=== PATIENT | male | born 1990 | race Two or more races ===

== ENCOUNTER 2024-07-23 17:39 | Emergency (ER) | payer MEDICAID, SELFPAY ==
[2024-07-23 17:56] VITALS: BP 149/85; PULSE 89; RESP 18; TEMP 36.9; O2SAT 99; BMI 27.7
--- NOTE | 2024-07-23 17:59 | XR_ITS ---
Examination: Abdomen sonogram, Limited Date and time of exam: July 23, 2024 1821 hrs. Indications: Epigastric pain and dizziness beginning today with right upper abdominal pain Technique: Real-time de guzman scale transabdominal sonographic images of the upper abdomen obtained. Findings: Suspicious for gallbladder sludge No gallstones Normal gallbladder wall Normal common bile duct 0.3 cm Pancreatic head 2.7 cm Liver 15.4 cm fatty infiltration no focal liver lesions Normal hepatopedal portal venous flow Impression: Negative for cholelithiasis, negative for cholecystitis Fatty liver
--- NOTE | 2024-07-23 18:01 | EDNOTE_ITS ---
<Statement entered by Darlene Ballesteros MD - 07/24/24 22:06> As co-signing physician, I was present and available for consult prn. I concur with the plan and care as documented by the midlevel provider. ED Abdominal Pain RME/HPI General Chief Complaint: Abdominal Pain Stated complaint: ABDOMINAL PAIN WITH DIARRHEA Time seen by provider: 07/23/24 17:53 Arrival date/time: 07/23/24 17:39 RME / HPI RME / HPI narrative: 33-year-old male patient with significant history of gout, hypertension, depression, anxiety, was brought in by family for evaluation regarding epigastric pain. Patient's been having epigastric pain earlier today when dizziness, nausea, severity moderate. Patient told me that from time to time he is not taking his medication due to side effects. Patient admits of suicidal ideations been ongoing for several days now. No concrete plan.. Denies any homicidal ideation.. No medications taken prior to arrival. Related Data Previous Rx's ?Medication ?Instructions ?Recorded buspirone 15 mg tablet 15 mg PO BID anxiety #60 tabs 05/14/24 indomethacin 25 mg capsule 25 mg PO TID gout #90 caps 05/14/24 losartan 50 mg tablet 50 mg PO QDAY #30 tabs 05/14/24 sertraline 50 mg tablet 50 mg PO QDAY #30 tabs 05/14/24 Allergies Allergy/AdvReac Type Severity Reaction Status Date / Time No Known Allergies Allergy Verified 07/23/24 17:40 Review of Systems Review of Systems Narrative Review of Systems: Review of system reviewed and within normal limits except mentioned in HPI ED Exam Narrative Physical exam: VITAL SIGNS: Reviewed. GENERAL APPEARANCE: Alert and interactive, follows commands, no acute distress, HEAD AND FACE: Non-traumatic. ENT: PERRL, pink conjunctivitis, eyelid no trauma, Mucous membrane moist. NECK: Supple, nontender, no nuchal rigidity. CHEST: No tenderness, no crepitus, no paradoxical movement, no retractions. LUNGS: Clear, well ventilated, symmetric, no rales, no wheezing, no ronchi, no stridor, good breath sounds bilaterally. HEART: Regular rate, regular rhythm, no murmur, no gallops. ABDOMEN: Soft, positive bowel sounds, nondistended, no guarding, epigastric tenderness, no rebound, no masses, RECTAL: Deferred. GENITAL: Deferred. NEUROLOGICAL: Gross motor function intact sensory function intact, Appropriate for age. MUSCULOSKELETAL: low back nontender, full range of motion. EXTREMITIES: Nontender, full range of motion. SKIN: Color pink, dry, no rash, no lacerations, no abrasions, no contusions. LYMPHATICS: Deferred. Course Quality Measures none Orders Category Date Time Status 1799 Psychiatric Hold NOW Care 07/23/24 18:30 Ordered US gall bladder Stat Exams 07/23/24 17:59 Completed CBC Stat Lab 07/23/24 18:18 Completed Comprehensive Metabolic Panel Stat Lab 07/23/24 18:18 Completed Drug Screen,Urine Stat Lab 07/23/24 18:27 Ordered Lipase Stat Lab 07/23/24 18:18 Completed Prothrombin Time with INR Stat Lab 07/23/24 18:18 Completed UA [Urinalysis] Stat Lab 07/23/24 17:59 Ordered DiphenhydrAMINE [Benadryl] Med 07/23/24 17:59 Discontinued 50 mg PO X1 ONE mg Hyd/Al Hyd/Alek Susp [Maalox Susp] Med 07/23/24 17:59 Discontinued 30 ml PO X1 ONE Vital Signs Vital signs: Vital Signs Temperature 98.5 F 07/23/24 17:56 Pulse Rate 89 07/23/24 17:56 Respiratory Rate 18 07/23/24 17:56 Blood Pressure 149/85 H 07/23/24 17:56 Pulse Oximetry (%) 99 07/23/24 17:56 Oxygen Delivery Method Room Air 07/23/24 17:56 Abdominal Pain MDM MDM Narrative MDM Narrative:: 33-year-old male patient with significant history of gout, hypertension, depression, anxiety, was brought in by family for evaluation regarding epigastric pain. Patient's been having epigastric pain earlier today when dizziness, nausea, severity moderate. Patient told me that from time to time he is not taking his medication due to side effects. Patient admits of suicidal ideations been ongoing for several days now. No concrete plan.. Denies any homicidal ideation.. No medications taken prior to arrival. Ultrasound of the abdomen came back unremarkable. Laboratory workup also came back normal. Patient is medically cleared for crisis intervention Care transferred to Dr Ballesteros at 11 pm for final disposition. Patient data External records reviewed:: None Clinical information provided by:: patient Social determinants that could affect healthcare access:: none Patient has the following chronic illnesses:: Depression, anxiety, schizophrenia How is presenting disease/condition affected by chronic disease/condition?: exacerbated by Evaluation data The following diagnostics were reviewed and interpreted by me:: lab results and radiology exam(s) Lab and/or radiology exams considered but not ordered:: None Interpretation Summary: Patient's workup all came back unremarkable. Ultrasound of the gallbladder came back with no acute pathology. Medications / Prescriptions Medications or Prescriptions considered but not ordered:: None Medication administrations:: Medication Administration History Discontinued Medications Al Hydrox/Mg Hydrox/Simethicone (Mg Hyd/Al Hyd/Alek (Maalox Reg) Susp 30 Ml Udc) 30 ml PO X1 ONE Stop: 07/23/24 18:00 Last Admin: 07/23/24 19:19 Dose: 30 ml Documented By: ALESIA Diphenhydramine HCl (Diphenhydramine 25 Mg Capsule) 50 mg PO X1 ONE Stop: 07/23/24 18:00 Last Admin: 07/23/24 20:45 Dose: Not Given Documented By: ALESIA Non-Admin Reason: Patient Asleep Maalox, and Benadryl Consultations Consultation(s) initiated? (list below): No Diagnosis Differential diagnosis abdominal pain: abdominal pain, gastroenteritis, pancreatitis and other (Biliary colic, cholelithiasis) Most likely diagnosis given after review of the tests above:: Suicidal ideation, abdominal pain Admission Indicated Admission indicated?: not indicated Explain why admission is indicated or not indicated:: None Admission Request Was there a request for admission?: No Disposition Plan Disposition Plan: other (specify) (Pending crisis intervention) Discharge Plan Prescriptions/Referrals Prescriptions/Med Rec: No Action buspirone 15 mg tablet 15 mg PO BID MDD 30 mg Qty: 60 5RF indomethacin 25 mg capsule 25 mg PO TID MDD 75 mg Qty: 90 5RF Rx Instructions: administer with food or milk sertraline 50 mg tablet 50 mg PO QDAY Qty: 30 2RF losartan 50 mg tablet 50 mg PO QDAY Qty: 30 2RF Referrals: No Primary/Family,Physician [Primary Care Provider] - In 1 week Problem List Clinical Impression: Suicidal ideation Patient/Caregiver Discharge Instructions Print Language: Sinhala
[2024-07-23 18:26] LABS: Basophils % (Auto) 1 % (0-2.5); Eosinophils # (Auto) 0.2 Thou/mm3 (0.0-0.5); Eosinophils % (Auto) 3 % (0-10); Hematocrit 44.8 % (41.0-53.0); Hemoglobin 15.7 g/dL (13.5-16.0); Immature Granulocytes % (Auto) 0 % (0-0); Immature Granulocytes Auto 0.01 Thou/mm3 (0.00-0.00); Lymphocytes # (Auto) 1.6 Thou/mm3 (1.0-4.8); Lymphocytes % (Auto) 26 % (10-50); Mean Corpuscular Hemoglobin 30.4 pg (25.0-35.0); Mean Corpuscular Volume 87 fL (80-100); Monocytes # (Auto) 0.6 Thou/mm3 (0.0-0.8); Monocytes % (Auto) 9 % (0-12); Neutrophils # (Auto) 3.9 Thou/mm3 (1.8-7.7); Neutrophils % (Auto) 62 % (37-80); Nucleated Red Blood Cell % 0 /100 WBC (0); Platelet Count 263 Thou/mm3 (140-440); RDW Standard Deviation 40.2 fL (35.1-43.9); Red Blood Count 5.17 Miln/mm3 (4.50-5.90); White Blood Count 6.3 Thou/mm3 (3.8-10.6)
[2024-07-23 18:36] LABS: INR 1.2 (0.9-1.3); Prothrombin Time 12.6 Seconds (9.0-12.2)
[2024-07-23 18:42] LABS: Alanine Aminotransferase 23 U/L (10-49); Albumin, Serum 4.5 gm/dL (3.5-5.0); Albumin/Globulin Ratio 1.7 (1.2-2.2); Alkaline Phosphatase 84 U/L (46-116); Anion Gap 3 (7-16); Aspartate Amino Transferase 27 U/L (0-34); BUN/Creatinine Ratio 18 Ratio (12-20); Blood Urea Nitrogen 16 mg/dL (9-23); Calcium 9.6 mg/dL (8.3-10.6); Calcium (Corrected) 9.6 mg/dL (8.5-10.1); Carbon Dioxide 30.8 mMol/L (20.0-31.0); Chloride 104 mMol/L (98-107); Creatinine (Component) 0.9 mg/dL (0.6-1.3); Estimated Creatinine Clearance 126.4 mL/min (>60); Globulin 2.6 gm/dL (2.3-3.5); Glucose 91 mg/dL (74-106); Lipase 39 U/L (12-53); Osmolality,Calculated 276 (275-295); Sodium 138 mMol/L (136-145); Total Protein 7.1 gm/dL (5.7-8.2); eGFR > 60 See Note
[2024-07-23] MEDS: MG HYD/AL HYD/SIME (Maalox Reg) SUSP 30 ML UDC PO (19:19)
[2024-07-23 22:06] VITALS: BP 155/88; PULSE 69; RESP 18; TEMP 36.7; O2SAT 98
--- NOTE | 2024-07-23 23:03 | PD.EDADDENDU ---
Emergency Room Addendum Addendum Narrative: 2300: Care assumed from Edy Ballard NP. Past medical, surgical, social and family history reviewed. Vitals and home medications reviewed. Results and treatment plan discussed. I will assume the care of the patient at this time and will follow the patient, pending crisis evaluation in the morning. Please refer to the emergency department record for history and examination. Patient was placed in observation for treatment and monitoring of psychiatric symptoms, at 2300 07/23/2024. Symptoms consist of suicidal ideation and depression. Treatment plan includes psychiatric consult, reassessments, and possible placement into psychiatric facility. The patient had access and provided personal hygiene, shower, food, water, and daily medications 0600: Care signed out to Dr. Lan (emergency physician). Past medical, surgical, social and family history reviewed. Vitals and home medications reviewed. Results and treatment plan discussed. They will assume the care of the patient at this time and will follow the patient, pending crisis evaluation.
[2024-07-24 04:41] VITALS: BP 153/94; PULSE 68; RESP 17; TEMP 36.7; O2SAT 98
--- NOTE | 2024-07-24 06:14 | PD.EDADDENDU ---
Emergency Room Addendum Addendum Narrative: Care assumed from Dr. Ballesteros (emergency physician). Past medical, surgical, social and family history reviewed. Vitals and home medications reviewed. Results and treatment plan discussed. I will assume the care of the patient at this time and will follow the patient, pending director social service evaluation. 0745 Reevaluated patients complaint of abdominal pain, patient points in epigastric area, states pain has been present 2-3 days. Patient is nontender at this time. Physical exam unremarkable. 0900 Patient was see by director social service and deemed fit to e released home, has out patient mental health follow up in place.
[2024-07-24 06:40] LABS: Collection Type, Urine Clean Catch; Squamous Epithelial Cell,Urine 0 /hpf (0-5)
[2024-07-24 07:15] LABS: Amphetamine/Methamp Scrn,U Positive (Negative); Barbiturate Screen,Urine Negative (Negative); Benzodiazepines Screen,Urine Negative (Negative); Benzoylecgonine Screen, Ur Negative (Negative); Fentanyl Screen,Urine Negative (Negative); Opiate Screen,Urine Negative (Negative); THC Screen,Urine Positive (Negative)
[2024-07-24 07:29] LABS: Bilirubin,Urine Negative (Negative); Blood,Urine Negative (Negative); Color,Urine Lt-Yellow (Lt Yel-Yel); Glucose, Urine Negative (Negative); Ketones,Urine Negative (Negative); Leukocyte Esterase,Urine Negative (Negative); Nitrite,Urine Negative (Negative); Protein,Urine Trace (Neg - Trace); RBC,Urine 3 /hpf (0-3); Specific Gravity,Urine 1.021 (1.001-1.035); Urobilinogen,Urine Negative mg/dL (0.0-1.0); WBC,Urine < 1 /hpf (0-5)
[2024-07-24 07:32] LABS: Clarity,Urine Hazy (Clear/Hazy); Sperm,Urine Present
[2024-07-24 08:12] VITALS: BP 137/86; PULSE 75; RESP 17; TEMP 36.7; O2SAT 98
--- NOTE | 2024-07-24 09:16 | PC.NURSE ---
RN called and spoke with patient family Jayda at [phone], informed patient is ready for parts picker for discharge home.
[2024-07-24 09:51] VITALS: BP 146/92; PULSE 82; RESP 16; TEMP 36.8; O2SAT 95
--- NOTE | 2024-07-24 11:47 | PC.CC ---
Pt Todd Sharma, is a 33-year-old male brought in to ED by family member for abdominal pain. [facility] met with pt to complete psychological assessment. Pt presents disheveled but was easily engaged and able to sit up on gurney and make direct eye contact as encounter progressed. Pt is noted to be alert and oriented to person, current place and year. Pt reports hx of mental health and reports being prescribed MH medications. Pt reports is on and off with compliance with medication for the past 3-4 years. Pt denies previous 5150 holds. Pt placed in ED 17. Pt reports living with Grandmother and his Aunt in [facility]. ED Brake Shoe Rebuilder encountered Pt for mental health evaluation. ED Brake Shoe Rebuilder used the following interventions: empathy, unconditional positive regard, Socratic dialogue including clarifying and probing questions. Pt was receptive and was able to disclosed he moved back to [facility] from [place] and since then has been on and off mental health medications. ED Brake Shoe Rebuilder used C-SSRS to support process and assessed for SI/HI, self-harming behaviors, method, access to lethal means, plan/intent. Pt was responsive to mental health evaluation and denied plan/intent for SI/HI. Pt denied hx of non-suicidal self-injury. Pt states he does not want to and he just has been feeling depressed and will like to receive MH support. ED Brake Shoe Rebuilder consulted with supervisor fryer farm Rebecca [place] and it was agreed to safety plan with client due to client denying SI/HI with no plan/intent. Pt was engaged and assessed as reliable in participation in safety planning and was in agreement. Pt was able to review positive coping skills of taking to friends and going on walks.
== END 2024-07-24 09:51 | disposition home or self-care (01) ==
PROVIDERS: Nurse Practitioner Family; Emergency Provider Emergency Medicine
DX: R45.851 Suicidal ideations (principal); R10.13 Epigastric pain
CPT/HCPCS: 36415; 76705; 80053; 80307; 81001; 83690; 85025; 85610; 90839; 96127; 99284; A9270

== ENCOUNTER 2024-07-26 13:48 | Outpatient (AMB) | payer MEDICAID, SELFPAY ==
[2024-07-26 13:56] VITALS: BP 130/83; PULSE 77; RESP 18; TEMP 36.6; O2SAT 99
--- NOTE | 2024-07-26 13:56 | PD.RESCLINIC ---
Vital Signs 07/26/24 13:56 Weight 76.317 kg Weight Measurement Method Standing Scale BP 130/83 Blood Pressure Source Automatic Cuff Blood Pressure Location Left Upper Arm Position Sitting Respiration 18 Pulse 77 Pulse Source Monitor Temp 97.9 F Temp Source Oral Pulse Oximetry (%) 99 Oxygen Delivery Method Room Air Allergies/Meds Allergies & Medications Allergies No Known Allergies Allergy (Verified 07/26/24 13:57) Medication Reconciliation buspirone 15 mg tablet 15 mg PO BID anxiety #60 tabs 07/26/24 [Rx] indomethacin 25 mg capsule 25 mg PO TID gout #90 caps 07/26/24 [Rx] losartan 50 mg tablet 50 mg PO QDAY #30 tabs 07/26/24 [Rx] omeprazole 20 mg capsule,delayed release 20 mg PO QDAY 30 days #30 caps 07/26/24 [Rx] alprazolam 0.25 mg tablet 0.25 mg PO BID PRN anxiety #65 tabs 07/27/24 [Rx] MA Intake Visit Data Collection New Patient or Established: Established Patient (seen at [facility] within 3 years) Seen by Clinical Staff ONLY (RN/MA): No Pain Present Currently: No Pain scale:: 0 Pain Scale Used: Bauer-Rossi/Numerical PCP or OBGYN visit in last 3 months: Yes Do You Feel Safe at Home: Yes Authorities Contacted: N/A Smoking Status Smoking Status: Never smoker Immunization / Flu Flu Vaccine in the Last 12 Months: No Flu Vaccine Exclusion Criteria: No Exclusion Criteria Past Medical History Past Medical History CARDIAC: Positive Hypertension; Negative Congestive Heart Failure RESPIRATORY: Negative Chronic Obstructive Pulmonary Disease (COPD) GENITOURINARY: Negative Renal Disease MUSCULOSKELETAL: Positive Rheumatoid Arthritis and Gout ENDOCRINE: Negative Diabetes Mellitus Type 1 or Diabetes Mellitus Type 2 PSYCHO/SOCIAL: Positive Recreational Drug Use, Bipolar Disorder, Depression and Anxiety Social History SMOKING STATUS: Smoking status: Never smoker LIVES WITH: Lives With: Family Patient Portal Questionaires PHQ-9 PHQ-2 Over the last 2 weeks, how often have you been bothered by any of the following problems? 1. Little interest or pleasure in doing things: several days PHQ-9 8. Moving or speaking so slowly that other people could have noticed? - Or the opposite - being so fidgety or restless that you have been moving around a lot more than usual: nearly every day Source: Developed by Drs. Daren LTami Crow Kurt Kroenke and colleagues, with an educational ashley from [employer]. Social History Living Situation History Housing Other:: Patient currently staying at friend's place Tobacco History Smoking Status: Never smoker Substance Use History Substance Use: methamphetamine Domestic Abuse History Do You Feel Safe at Home: Yes Review of Systems Report any current symptoms Only answer those that you have currently: Past Medical History Past Medical History Have you ever been diagnosed with any of the following: Cardiology Problems Congestive Heart Failure: No Hypertension: Yes Respiratory Problems Chronic Obstructive Pulmonary Disease (COPD): No Genital/Urinary Problems Renal Disease: No Musculoskeletal Problems Rheumatoid Arthritis: Yes Gout: Yes Endocrine Problems Diabetes Mellitus Type 1: No Diabetes Mellitus Type 2: No Psychologic Problems Recreational Drug Use: Yes Bipolar Disorder: Yes Depression: Yes Anxiety: Yes History of Present Illness HPI Narrative Patient seen today at the clinic. Patient was previous seen by another resident clinic. Today is my first encounter with this patient. Patient is currently being treated for anxiety and depression We were unable to assess this PSK 9 and DIANE-7 levels today however we will reevaluate at next appointment. Patient today feels somewhat anxious. Continues to have issues in the home front involving his aunt and grandmother. He is the only person that can take care of them. Feels very isolated due to his responsibilities to his family. He would like to have the way out however does not have a car or nor friends to reach out to. I encouraged the patient that we can help him with resources to help him in the house such as home health to help his grandma with some daily activities. Patient states that he has been working out more as a way to cope with his anxiety which he stated that has been getting much better. He has been sleeping about 7 hours at night. Has a good appetite and good bowel movement. No panic attacks no mood disorder signs no voices in his head or hallucinations. Denies any SI or HI at this time. 05/14/24 Pt was seen in clinic for followup visit, reported improvemnt in symtoms of depression, PHQ 9 score 5 on today's visit; reported enjoying workouts and active life style, reported no active joint pains. Pt is requesting refills on his medications; reported taht he had stopped taking his blood pressure pills around 1 month ago due to not feeling good and been inconsistent in taking them since; today BP on arrival is within normal limits despite not taking any antihypertensives for past few days. 07/26/2024 patient is here for follow-up visit after being discharged from the ED on 07/24/2024. Patient states that he went to the ER because he could not take his living situation at home with his grandmother and his aunt anymore stating that his aunt is driving him crazy and he needed a mental break. He states at the time he was having suicidal ideation however he is no longer having thoughts of hurting himself or others. 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 He states that working out has really helped improve his symptoms and help him cope with his living situation. He states that he was drinking and smoking marijuana prior to the episode that led him to the ED and he has not been using alprazolam for over a month. Patient otherwise states that he has managed to lose weight as he works out and has been eating well and drinking protein supplements however he still does not drink as much water as he should. Patient remains out of work as he has to take care of his grandma and when asked about home health he states that his aunt drives and he noticed out. Patient was counseled on taking the necessary measures to take care of his mental and physical health including meditation, eating healthy and continuation of physical exercise. Patient asked about restarting the alprazolam for his panic attacks as a result he went to the ED this last time was because he had a severe panic attack and he did not have the alprazolam to help him cope with it. Patient was heavily counseled on the cessation of alcohol and avoidance of any other substance if he is to be restarted on alprazolam which was helping him control the symptoms previously. Patient agreed on the plan. Review of Systems Review of Systems Systems Reviewed: All systems reviewed, normal except as documented Objective/Exam Narrative Physical exam: Constitutional: Well nourished and in no acute distress Head: Normocephalic/Atraumatic, there is dandruff present CVS: RRR, S1 and S2 present, no murmurs, rubs or gallops . RESP: CTAB, no SOB, no rales, rhonchi or wheezing. No respiratory Distress GI: Normal BS, Nontender/Nondistended. MSK: Full range of motion, No trauma or deformities or masses. There is mild deformities on the proximal metatarsal phalangeal joints in the left arm from gout. Skin: Warm to touch, Dry. No rashes. Patient has some healed abrasions of his right knuckles. Neuro: bank advisor II-XII grossly intact. Sensation grossly intact. Psych: (AAO) x3 . Appropriate mood and somewhat anxious Assessment & Plan Diagnosis / Problem List (1) Mood disorder: Status: Acute Assessment & Plan: DSM-5 Criteria for Bipolar Disorder questionnaire completed in clinic which is suggestive of mood disorder Bipolar Type II Patient was recently discharged from the ED after having suicidal ideation. Plan: Discontinued sertraline Patient has been unsuccessful in establishing care with psychiatrist despite multiple referrals secondary to insurance issues, transportation, and lack of follow-up. In the meantime I will discuss with my colleague psychiatrist Dr. Novak in [place] if he will consider seeing patient in his clinic. consider starting mood stabilizer while awaiting psychiatric follow-up. (2) Depression with anxiety: Status: Chronic Assessment & Plan: Patient has a history of depression and anxiety which may be related to childhood trauma. PHQ-9 score 5 indicating improvemnt in depression Denies suicidal ideation and self harm or harm to others. Plan: Continue Alprazolam 0.25 mg twice daily, medication refilled, CURES reviewed and no additional rxs obtained. Counseled to not operate motor vehcile after taking this medication and patient in agreement. Safety plan discussed with patient if suicidal symptoms develop and will go to ER if needed Continue Buspirone 15 mg p.o. twice daily, medication refilled Failed multiple psychiatric referrals in past, will attempt to establish care with psychiatrist in [place] (3) Hypertension: Status: Chronic Qualifiers: Hypertension type: primary hypertension Qualified Code(s): I10 - Essential (primary) hypertension Assessment & Plan: Chronic hypertension- Primary hypertension Stage I Patient is non-compliant with his home antihypertensive medications, will simplify medication regimen to encourage compliance and reduce patients anxiety about adverse events. Patient has home blood pressure cuff and SBP currently trending in 120s to low 130s at home Plan: Continue losartan 50 mg daily as blood pressure within normal limits despite nocompliance with medications. 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 3 times daily as needed during acute flares of gouty arthrirtis and Allopurinol 300 mg p.o. daily. Medications refilled Patient advised to continue to stay hydrated and gout diet reviewed with patient. (5) Insomnia: Status: Acute Qualifiers: Insomnia type: psychophysiologic Qualified Code(s): F51.04 - Psychophysiologic insomnia Assessment & Plan: reported trouble sleeping, says adrenaline bolden keepis him going through the day but his mind stays hyoer active during the night. Endorses vivid dreams Plan: Continue melatonin 5 mg nightly Counseled on good sleep hygiene and patient showed understanding Follow-up next visit (6) GERD (gastroesophageal reflux disease): Status: Acute Qualifiers: Esophagitis presence: esophagitis presence not specified Qualified Code(s): K21.9 - Gastro-esophageal reflux disease without esophagitis Assessment & Plan: Patient has been having increased reflux with his medicaitons Plan: Patient was counsoled on dietary changes and making sure he avoids spicy food and alcohol as well as acidic foods such as deep fried foods Will start omeprazol 20mg once daily for 30 days Plan Follow up in 4 weeks to monitor symptoms or come sooner if having panic attacks Additional Assessment Attending note: I, Gael Velarde MD, attest that I was physically present for the chavez portions of the service and evaluated the patient with the resident and I reviewed and discussed the case with the resident and agree with the resident's findings and plans of care as documented above. Chronic issues reviewed. Was recently seen in emergency department due to mental health issues. We have previously tried to establish the patient with psychiatric services. We will attempt to do so again. For now, we will continue him on his present regimen. Of note, he has essentially started weaning himself off of alprazolam by taking only intermittently. For that reason, we will decrease the dose today from 0.5 mg p.o. twice daily to 0.25 mg p.o. twice daily, and he will again be given 5 extra tablets for breakthrough symptoms of anxiety. Continue buspirone. If we are not able to get the patient in with psychiatric services, would consider starting a mood stabilizer. Patient has discontinued venlafaxine that he was taking previously. Blood pressure under good control with losartan. At next visit, would resume allopurinol for gout and recheck uric acid level. Gael Velarde MD Physician Billing Established Patient Established Patient: E/M Level 3-CPT 07339 Office Procedures [facility] Level of Care Nursing/Assessment Patient Status: Established Patient Nursing Assessment/Reassessment: Medication Reconciliation, Update PMH in EMR and Vital Signs Coordination of Care: Complex Care and Chronic Disease 1-5, Education Complex Pt/Fam, Results/Orders obtained and Staff clarify orders Established Patient Charge Established Patient Point Assignment: 90 Established Patient Point Charge: Level 3 (80-115)
== END 2024-07-26 14:31 | disposition home or self-care (01) ==
LOC: HODAHC 13:48
PROVIDERS: Supervising Provider Internal Medicine; Visit Provider Student in an Organized Health Care Education/Training Program
DX: F41.8 Other specified anxiety disorders (principal); R45.851 Suicidal ideations; I10 Essential (primary) hypertension; M1A.9XX0 Chronic gout, unspecified, without tophus (tophi); F51.04 Psychophysiologic insomnia; K21.9 Gastro-esophageal reflux disease without esophagitis
CPT/HCPCS: 99213; G0463